=== PATIENT | female | born 1980 | race Caucasian/White ===

== ENCOUNTER 2016-10-31 22:09 | Emergency (ER) | payer OTHER ==
[2016-11-01 00:42] LABS: BASOPHIL 0.2 % (0-2); EOSINOPHIL 1.9 % (0-5); HCT 41.7 % (37.0-47.0); HGB 13.8 g/dl (12.5-16.0); LYMPHOCYTE 36.2 % (15-48); MCH 31.3 pg (25.0-31.0); MCHC 33.1 g/dL (32.0-36.0); MCV 94.6 fL (78.0-100.0); MONOCYTE 5.7 % (0-12); MPV 10.1 fL (6.0-9.5); PLT 260 K/uL (150-400); RBC 4.41 M/uL (4.20-5.40); RDW 12.8 % (11.5-14.0); WBC 8.3 K/uL (4.0-10.5)
[2016-11-01 00:44] LABS: CREATININE 0.7 mg/dL (0.5-1.0); POTASSIUM 3.8 mmol/L (3.5-5.1)
== END 2016-11-01 01:44 | disposition home or self-care (01) ==
LOC: FER 22:09
PROVIDERS: Emergency Medicine Emergency Medical Services
DX: R10.9 Unspecified abdominal pain (principal); R51 Headache; Z87.42 Personal history of other diseases of the female genital tract; Z88.6 Allergy status to analgesic agent; Z98.51 Tubal ligation status; Z90.49 Acquired absence of other specified parts of digestive tract
CPT/HCPCS: 36415; 70450; 80048; 85025; 85651; 87339; G0480

== ENCOUNTER 2021-01-12 21:32 | Emergency (ER) | payer OTHER ==
[2021-01-13 00:43] LABS: BILIRUBIN NEGATIVE (NEGATIVE); BLOOD 3+ Ery/uL (NEGATIVE); CLARITY CLEAR (CLEAR); COLOR YELLOW (YELLOW); GLUCOSE (U) NORMAL (NORMAL); LEUKOCYTES 1+ Leu/uL (NEGATIVE); NITRITE NEGATIVE (NEGATIVE); PROTEIN NEGATIVE (NEGATIVE); UROBILINOGEN 0.2 mg/dL (0.2-1.0); pH 7.5 (5.0-9.0)
[2021-01-13 00:44] LABS: BASOPHIL 0.5 % (0-2); EOSINOPHIL 2.6 % (0-5); HCT 48.7 % (37.0-47.0); LYMPHOCYTE 32.2 % (15-48); MCH 32.7 pg (25.0-31.0); MCHC 32.9 g/dL (32.0-36.0); MCV 99.4 fL (78.0-100.0); MONOCYTE 4.7 % (0-12); MPV 10.2 fL (6.0-9.5); NEUTROPHIL 59.7 % (41-80); NRBC 0; PLT 217 K/uL (150-400); RDW 12.3 % (11.5-14.0); WBC 7.4 K/uL (4.0-10.5)
[2021-01-13 00:50] LABS: AMORPHOUS URATES CRYSTALS MODERATE; BACTERIA TRACE; URINARY RBC TNTC; URINARY WBC RARE
[2021-01-13 01:06] LABS: CREATININE 0.48 mg/dL (0.51-0.95)
[2021-01-13 01:07] LABS: ALBUMIN 3.8 g/dL (3.4-5.0); BILIRUBIN - TOTAL 0.4 mg/dL (0.2-1.0); BUN/CREAT RATIO (CALC) 22.9 RATIO; GLOBULIN (CALCULATION) 3.8 g/dL; TOTAL PROTEIN 7.6 g/dL (6.4-8.2)
[2021-01-13] MEDS ORDERED: NORCO 5-325 TA1 EACH PO (01:39)
== END 2021-01-13 01:44 | disposition home or self-care (01) ==
LOC: FER 21:32
PROVIDERS: Emergency Medicine
DX: R10.9 Unspecified abdominal pain (principal); R31.9 Hematuria, unspecified
CPT/HCPCS: 36415; 80053; 81001; 85025; J1170; J2405

== ENCOUNTER 2021-01-18 02:26 | Emergency (ER) | payer OTHER ==
[~2021-01-18 02:26] MED LIST: NORCO 5-325 TA1 EACH PO
[2021-01-18 03:28] LABS: BASOPHIL 0.5 % (0-2); EOSINOPHIL 2.2 % (0-5); HCT 46.6 % (37.0-47.0); HGB 14.9 g/dl (12.5-16.0); LYMPHOCYTE 10.3 % (15-48); MCH 31.8 pg (25.0-31.0); MCV 99.4 fL (78.0-100.0); MONOCYTE 5.1 % (0-12); MPV 9.9 fL (6.0-9.5); NEUTROPHIL 81.8 % (41-80); NRBC 0; PLT 209 K/uL (150-400); RBC 4.69 M/uL (4.20-5.40); RDW 12.2 % (11.5-14.0); WBC 7.4 K/uL (4.0-10.5)
[2021-01-18 03:32] LABS: BILIRUBIN NEGATIVE (NEGATIVE); BLOOD 3+ Ery/uL (NEGATIVE); CLARITY CLEAR (CLEAR); COLOR YELLOW (YELLOW); GLUCOSE (U) NORMAL (NORMAL); LEUKOCYTES 3+ Leu/uL (NEGATIVE); NITRITE NEGATIVE (NEGATIVE); PROTEIN NEGATIVE (NEGATIVE); SPECIFIC GRAVITY 1.015 (1.001-1.030); UROBILINOGEN 0.2 mg/dL (0.2-1.0); pH 7.5 (5.0-9.0)
[2021-01-18 03:39] LABS: URINARY RBC 20-50
[2021-01-18 03:40] LABS: BACTERIA 2+
[2021-01-18 03:45] LABS: BUN/CREAT RATIO (CALC) 22.2 RATIO; CREATININE 0.54 mg/dL (0.51-0.95); POTASSIUM 3.8 mmol/L (3.5-5.1)
[2021-01-18] MEDS ORDERED: MACROBID100 MG PO (03:48)
== END 2021-01-18 04:10 | disposition home or self-care (01) ==
LOC: FER 02:26
PROVIDERS: Emergency Medicine
DX: N30.90 Cystitis, unspecified without hematuria (principal); Z90.710 Acquired absence of both cervix and uterus; Z88.6 Allergy status to analgesic agent
CPT/HCPCS: 36415; 80048; 81001; 85025; 87088; J0696; J1885; J2405; J2800; J7050

== ENCOUNTER 2021-04-18 18:40 | Emergency (ER) | payer OTHER ==
[~2021-04-18 18:40] MED LIST changes: +MACROBID100 MG PO
[2021-04-18 19:24] LABS: BASOPHIL 0.8 % (0-2); EOSINOPHIL 2.2 % (0-5); HGB 15.3 g/dl (12.5-16.0); LYMPHOCYTE 37.1 % (15-48); MCH 31.5 pg (25.0-31.0); MCHC 31.9 g/dL (32.0-36.0); MONOCYTE 9.4 % (0-12); MPV 9.8 fL (6.0-9.5); NEUTROPHIL 50.3 % (41-80); NRBC 0; PLT 207 K/uL (150-400); RBC 4.85 M/uL (4.20-5.40); RDW 13.1 % (11.5-14.0)
[2021-04-18 19:43] LABS: ALBUMIN 3.6 g/dL (3.4-5.0); BILIRUBIN - TOTAL 0.4 mg/dL (0.2-1.0); BUN/CREAT RATIO (CALC) 12.8 RATIO; CREATININE 0.47 mg/dL (0.51-0.95); GLOBULIN (CALCULATION) 4.1 g/dL; POTASSIUM 3.9 mmol/L (3.5-5.1); TOTAL PROTEIN 7.7 g/dL (6.4-8.2)
[2021-04-18 20:52] LABS: BILIRUBIN NEGATIVE (NEGATIVE); BLOOD 3+ Ery/uL (NEGATIVE); CLARITY CLEAR (CLEAR); COLOR YELLOW (YELLOW); GLUCOSE (U) NORMAL (NORMAL); LEUKOCYTES 3+ Leu/uL (NEGATIVE); NITRITE NEGATIVE (NEGATIVE); PROTEIN 1+ mg/dL (NEGATIVE); SPECIFIC GRAVITY >=1.030 (1.001-1.030); UROBILINOGEN 0.2 mg/dL (0.2-1.0)
[2021-04-18 20:58] LABS: BACTERIA 3+; URINARY WBC TNTC
[2021-04-18] MEDS ORDERED: BACTRIM DS TAB1 EACH PO (22:45)
== END 2021-04-18 23:10 | disposition home or self-care (01) ==
LOC: FER 18:40
PROVIDERS: Internal Medicine
DX: N39.0 Urinary tract infection, site not specified (principal); R11.0 Nausea; Z88.6 Allergy status to analgesic agent; Z87.891 Personal history of nicotine dependence
CPT/HCPCS: 36415; 80053; 81001; 82150; 83690; 85025; 87088; J0696; J1885; J2270; J2405; J7030